=== PATIENT | male | born 1965 | race Caucasian/White ===

== ENCOUNTER 2020-09-24 17:21 | Inpatient (IN) | payer OTHER ==
[~2020-09-24] VITALS: Ht 165.1 cm; Wt 107.0 kg
[2020-09-24 18:34] VITALS: Ht 165.1 cm; Wt 107.0 kg
[2020-09-24 20:23] LABS: BASOPHIL % 0.3 % (0-2); PLATELET COUNT 352 x10^3mcL (130-400); RED CELL DISTRIBUTION WIDTH 12.2 % (11.5-14.5)
[2020-09-24 20:35] LABS: UA SPECIFIC GRAVITY 1.025 (1.005-1.035); microscopic required? YES; urine erythrocyte 2+ (NEGATIVE)
[2020-09-24 21:03] LABS: CALCIUM 8.9 mg/dL (8.5-10.1); CARBON DIOXIDE 22.9 mmol/L (21-32); CHLORIDE SERUM 101 mmol/L (98-107); GFR1 > 60 mL/min; GLUCOSE SERUM 117 mg/dL (74-106); POTASSIUM SERUM 3.8 mmol/L (3.5-5.1); SODIUM SERUM 139 mmol/L (136-145)
[2020-09-24 21:07] LABS: ALBUMIN 3.4 g/dL (3.4-5.0); ALKALINE PHOSPHATASE 116 U/L (46-116); ALT/SGPT 66 U/L (16-63); AST/SGOT 55 U/L (15-37); BILIRUBIN TOTAL 0.6 mg/dL (0.20-1.00); C REACTIVE PROTEIN 10.3 mg/dL (<=0.9); LACTIC DEHYDROGENASE (LDH) 401 U/L (100-190); TOTAL PROTEIN, SERUM 8.1 g/dL (6.4-8.2)
[2020-09-25 05:26] LABS: BASOPHIL % 0.5 % (0-2); PLATELET COUNT 363 x10^3mcL (130-400); RED CELL DISTRIBUTION WIDTH 12.4 % (11.5-14.5)
[2020-09-26 03:25] VITALS: BP 137/67
[2020-09-26 05:44] VITALS: BP 114/64
[2020-09-26 07:57] LABS: BASOPHIL % 1.3 % (0-2)
[2020-09-26 08:00] VITALS: BP 122/78
[2020-09-26 08:16] LABS: RED CELL DISTRIBUTION WIDTH 11.7 % (11.5-14.5)
[2020-09-26 08:47] LABS: PLATELET COUNT 431 x10^3mcL (130-400)
[2020-09-26 12:03] VITALS: BP 108/41
[2020-09-26 16:10] VITALS: BP 110/63
[2020-09-26 21:40] VITALS: BP 107/57
[2020-09-27 06:11] VITALS: BP 105/53
[2020-09-27 08:16] VITALS: BP 123/74
[2020-09-27 08:36] LABS: RED CELL DISTRIBUTION WIDTH 11.6 % (11.5-14.5)
[2020-09-27 08:46] LABS: ALKALINE PHOSPHATASE 95 U/L (46-116); ALT/SGPT 84 U/L (16-63); AST/SGOT 30 U/L (15-37); BILIRUBIN TOTAL 0.38 mg/dL (0.20-1.00); CALCIUM 9.1 mg/dL (8.5-10.1); CARBON DIOXIDE 26.2 mmol/L (21-32); CHLORIDE SERUM 105 mmol/L (98-107); GFR1 > 60 mL/min; GLUCOSE SERUM 97 mg/dL (74-106); POTASSIUM SERUM 3.9 mmol/L (3.5-5.1); SODIUM SERUM 141 mmol/L (136-145); TOTAL PROTEIN, SERUM 6.9 g/dL (6.4-8.2)
[2020-09-27 08:48] LABS: ALBUMIN 2.7 g/dL (3.4-5.0)
[2020-09-27 11:46] LABS: BASOPHIL % 2.1 % (0-2)
[2020-09-27 12:36] VITALS: BP 119/62
[2020-09-27 15:44] LABS: PLATELET COUNT 526 x10^3mcL (130-400)
[2020-09-27 16:37] VITALS: BP 123/70
[2020-09-27 21:02] VITALS: BP 105/55
[2020-09-28 05:39] VITALS: BP 112/70
[2020-09-28 07:41] LABS: BASOPHIL % 0.4 % (0.2-1.5); RED CELL DISTRIBUTION WIDTH 12.4 % (12.1-16.2)
[2020-09-28 08:00] VITALS: BP 140/58
[2020-09-28 08:26] LABS: ALKALINE PHOSPHATASE 90 U/L (46-116); ALT/SGPT 91 U/L (16-63); AST/SGOT 32 U/L (15-37); BILIRUBIN TOTAL 0.42 mg/dL (0.20-1.00); CALCIUM 8.9 mg/dL (8.5-10.1); CARBON DIOXIDE 28.2 mmol/L (21-32); CHLORIDE SERUM 104 mmol/L (98-107); GFR1 > 60 mL/min; GLUCOSE SERUM 92 mg/dL (74-106); POTASSIUM SERUM 3.9 mmol/L (3.5-5.1); SODIUM SERUM 142 mmol/L (136-145); TOTAL PROTEIN, SERUM 6.8 g/dL (6.4-8.2)
[2020-09-28 08:58] LABS: ALBUMIN 2.8 g/dL (3.4-5.0)
[2020-09-28 12:21] VITALS: BP 114/69
[2020-09-28 15:09] LABS: PLATELET COUNT 543 x10^3mcL (152-348)
[2020-09-28 16:47] VITALS: BP 115/66
[2020-09-28 21:49] VITALS: BP 125/73
[2020-09-29 06:39] VITALS: BP 113/69
[2020-09-29 08:44] VITALS: BP 120/75
[2020-09-29 10:43] LABS: ALKALINE PHOSPHATASE 87 U/L (46-116); ALT/SGPT 125 U/L (16-63); AST/SGOT 51 U/L (15-37); CALCIUM 8.7 mg/dL (8.5-10.1); CARBON DIOXIDE 27.4 mmol/L (21-32); CHLORIDE SERUM 104 mmol/L (98-107); CREATININE SERUM 1.1 mg/dL (0.7-1.3); GFR1 > 60 mL/min; GLUCOSE SERUM 88 mg/dL (74-106); MAGNESIUM 2.4 mg/dL (1.8-2.4); POTASSIUM SERUM 4.2 mmol/L (3.5-5.1); SODIUM SERUM 141 mmol/L (136-145); TOTAL PROTEIN, SERUM 6.8 g/dL (6.4-8.2)
[2020-09-29 11:06] LABS: ALBUMIN 2.9 g/dL (3.4-5.0)
[2020-09-29 12:31] LABS: RED CELL DISTRIBUTION WIDTH 12.7 % (12.1-16.2)
[2020-09-29 12:40] VITALS: BP 116/73
[2020-09-29 16:19] LABS: BAND NEUTROPHIL 3 % (0-10); BASOPHIL 1 % (0-2); MONOCYTE 10 % (0-7); SEGMENTED NEUTROPHILS 51 % (37-75)
[2020-09-29 16:20] LABS: METAMYELOCTE 1 % (0-2); MYELOCYTE 1 % (0-2); PLATELET MORPHOLOGY PLATELETS INCREASED; rbc morphology (normal/abnorm) NORMAL (NORMAL)
[2020-09-29 16:22] VITALS: BP 100/60
[2020-09-29] MEDS ORDERED: ELIQUIS2.5 MG PO (17:07)
[2020-09-29] MEDS ORDERED: PROAIR HFA8.5 GM INH (17:07)
[2020-09-29] MEDS ORDERED: DECADRON4 MG PO (17:07)
[2020-09-29 17:14] VITALS: BP 100/60
[2020-09-29 17:16] LABS: PLATELET COUNT 599 x10^3mcL (152-348)
== END 2020-09-29 17:55 | disposition home or self-care (01) | DRG 177 ==
LOC: ED 17:21 → MU 21:18
PROVIDERS: Emergency Medicine; Internal Medicine; Internal Medicine Pulmonary Disease; ADMIT Hospitalist; ATTEND Internal Medicine Infectious Disease
PROC: XW033E5 Introduction of Remdesivir Anti-infective into Peripheral Vein, Percutaneous Approach, New Technology Group 5 (ICD-10-PCS; principal; 2020-09-25)
DX: U07.1 COVID-19 (principal); J12.89 Other viral pneumonia; J96.01 Acute respiratory failure with hypoxia; E78.00 Pure hypercholesterolemia, unspecified; E78.5 Hyperlipidemia, unspecified; E11.9 Type 2 diabetes mellitus without complications; E66.9 Obesity, unspecified; Z71.3 Dietary counseling and surveillance; Z68.39 Body mass index [BMI] 39.0-39.9, adult
CPT/HCPCS: 36600; 82962; 83880; 85378; 87804; 94150; C9113; G0378; J0456; J0696; J1100; J1815; J7030; J7050; U0003